=== PATIENT | female | born 1990 | race Two or more races ===

== ENCOUNTER 2020-07-05 10:33 | Emergency (ER) | payer SELFPAY ==
[~2020-07-05] VITALS: Ht 149.9 cm; Wt 75.0 kg
[2020-07-05] MEDS ORDERED: ONDANSETRON PF 4 MG/2 ML VIAL. IVP ONE (11:00)
[2020-07-05] MEDS ORDERED: KETOROLAC 30 MG/ML VIAL. IVP ONE (11:00)
--- NOTE | 2020-07-05 11:15 | PHYS DOC ---
Past Medical History Past Medical History: No Pertinent History Past Surgical History: No Surgical History Smoking Status: Never Smoker Alcohol Use: Occasionally General Adult EDM: Chief Complaint: PAIN ON URINATION HPI: HPI: Patient is a 29 year old female who presents with 5 days of urinary frequency and burning with urination. She stated that she start taking [id number] Cystex. She states that the pain is only gotten worse and she is now having bilateral flank pain for last 2 days but has now become more constant. She states this pain will radiate around into her lower abdomen. She states that she is also started her. But her periods are irregular. She states she is also having some nausea but has not vomited. She states that 2 days ago she was having some chills but she never actually took her temperature. She states she has not been taking any pain medications for pain. She rates it a 7 out of 10 and states it is worse when she is up and moving. She states she is had urine tract infections in the past but no other past medical history. She states she takes no medications daily. Patient denies chest pain, shortness of breath, cough, vomiting, diarrhea, numbness or tingling, headache, dizziness, vision changes. Review of Systems: Review of Systems: Constitutional: fever or chills. [] Eyes: Denies change in visual acuity. [] HENT: Denies nasal congestion or sore throat. [] Respiratory: Denies cough or shortness of breath. [] Cardiovascular: Denies chest pain or edema. [] GI: Low mid abdominal pain, nausea, denies vomiting, bloody stools or diarrhea. [] : Denies dysuria. [] Musculoskeletal: Bilateral flank. Denies back pain or joint pain. [] Integument: Denies rash. [] Neurologic: Denies headache, focal weakness or sensory changes. [] Endocrine: Denies polyuria or polydipsia. [] Lymphatic: Denies swollen glands. [] Psychiatric: Denies depression or anxiety. [] Heart Score: Risk Factors: Risk Factors: DM, Current or recent (<one month) smoker, HTN, HLP, family history of CAD, obesity. Risk Scores: Score 0 - 3: 2.5% MACE over next 6 weeks - Discharge Home Score 4 - 6: 20.3% MACE over next 6 weeks - Admit for Clinical Observation Score 7 - 10: 72.7% MACE over next 6 weeks - Early Invasive Strategies Allergies: Allergies: Allergies Coded Allergies Type Severity Reaction Last Updated Verified No Known Drug Allergies 07/05/20 No Physical Exam: PE: Constitutional: Well developed, well nourished, no acute distress, non-toxic appearance. [] HENT: Normocephalic, atraumatic, bilateral external ears normal, oropharynx moist, no oral exudates, nose normal. [] Eyes: PERRLA, EOMI, conjunctiva normal, no discharge. [] Neck: Normal range of motion, no tenderness, supple, no stridor. [] Cardiovascular:Heart rate regular rhythm, no murmur [] Lungs & Thorax: Bilateral breath sounds clear to auscultation [] Abdomen: Bowel sounds normal, soft, no tenderness, no masses, no pulsatile masses. [] Skin: Warm, dry, no erythema, no rash. [] Back: No tenderness, no CVA tenderness. [] Extremities: No tenderness, no cyanosis, no clubbing, ROM intact, no edema. [] Neurologic: Alert and oriented X 3, normal motor function, normal sensory function, no focal deficits noted. [] Psychologic: Affect normal, judgement normal, mood normal. Normal physical exam [] Current Patient Data: Labs: Laboratory Tests Test 07/05/20 10:56 POC Urine HCG, Qualitative Hcg negative (Negative) Vital Signs: Vital Signs Date Time Temp Pulse Resp B/P (MAP) Pulse Ox O2 Delivery O2 Flow Rate FiO2 07/05/20 10:40 97.7 68 16 92/55 (67) 100 Room Air 97.7 EKG: EKG: [] Radiology/Procedures: Radiology/Procedures: [] Impression: [facility] [address] [place] [address] IMAGING REPORT Signed PATIENT: LITTLE HAQUEACCOUNT: [id number] : 1990 LOCATION: ER AGE: 29 SEX: F EXAM STATUS: REG ER ORD. PHYSICIAN: JOSE FLORENCE APRN REASON: Right flank pain x 2 days, uti symptoms PROCEDURE: CT ABDOMEN PELVIS WO CONTRAST CT abdomen and pelvis without contrast HISTORY: Right flank pain for 2 days and dysuria COMPARISON: None TECHNIQUE: Computed tomographic imaging of the abdomen and pelvis was performed without IV contrast PQRS Compliance Statement: One or more of the following individualized dose reduction techniques were utilized for this examination: 1. Automated exposure control 2. Adjustment of the mA and/or kV according to patient size 3. Use of iterative reconstruction technique FINDINGS: Atelectasis or scarring in the left lower lobe Gallbladder is contracted. Liver negative Spleen negative Adrenal glands negative Pancreas negative Kidneys negative Appendix normal Uterus and ovaries unremarkable Bladder is mostly decompressed Moderate stool retention IMPRESSION: No acute findings Electronically signed by: Ela Gomez MD (07/05/2020 11:57 AM) [id number] DICTATED and SIGNED BY: ELA GOMEZ MD DATE: 07/05/201156 Course & Med Decision Making: Course & Med Decision Making Pertinent Labs and Imaging studies reviewed. (See chart for details) See HPI. Alert and oriented x4. Ambulatory with a steady gait. Skin pink warm and dry. Vital signs within normal limits. Abdomen soft and nontender. No CVA tenderness. She denies any abnormal vaginal discharge or constipation. She states she is able to eat and drink appropriately. Due to patient being on her menses the urinalysis is not accurate. I will treat her symptoms as a UTI. CT shows no acute findings. Blood work is unremarkable. Patient is stable and discharged home and follow-up primary care. [] Niru Disclaimer: Niru Disclaimer: This electronic medical record was generated, in whole or in part, using a voice recognition dictation system. Departure Departure Impression: Primary Impression: Flank pain Additional Impression: Urinary symptom or sign Disposition: 01 HOME, SELF-CARE Condition: STABLE Referrals: NO PCP (PCP) Patient Instructions: Urinary Tract Infection Additional Instructions: Drink plenty of fluids. Take medication as prescribed and with food. Follow-up with a primary care physician. The Pyridium will make your urine turn orange color. Scripts Cephalexin (KEFLEX) 500 Mg Capsule 1 CAP PO BID for 7 Days, #14 CAP 0 Refills Prov: JOSE FLORENCE RESEARCH EDITOR 07/05/20 Phenazopyridine Hcl (PYRIDIUM) 100 Mg Tablet 1 TAB PO TID for urinary discomfort for 3 Days, #9 TAB 0 Refills Prov: JOSE FLORENCE RESEARCH EDITOR 07/05/20 Justicifation of Admission Dx: Justifications for Admission: Justification of Admission Dx: N/A JOSE FLORENCE APRN Jul 05, 2020 11:15
[2020-07-05 11:26] LABS: COLOR,URINE RED
[2020-07-05 11:33] LABS: BASO # 0.1 x10^3/uL (0.0-0.2); BASO % 1 % (0-3); EOS # 0.2 x10^3/uL (0.0-0.7); EOS % 3 % (0-3); HEMATOCRIT 39.1 % (36.0-47.0); HEMOGLOBIN 13.4 g/dL (12.0-15.5); LYMPH # 1.9 x10^3/uL (1.0-4.8); LYMPH % 25 % (24-48); MEAN CORPUSCULAR HEMOGLOBIN 30 pg (25-35); MEAN CORPUSCULAR HGB CONC 34 g/dL (31-37); MEAN CORPUSCULAR VOLUME 88 fL (79-100); MONO # 0.5 x10^3/uL (0.0-1.1); MONO % 7 % (0-9); NEUT # 4.8 x10^3/uL (1.8-7.7); NEUT % 65 % (31-73); PLATELET COUNT 388 x10^3/uL (140-400); RED BLOOD COUNT 4.44 x10^6/uL (3.50-5.40); RED CELL DISTRIBUTION WIDTH 13.6 % (11.5-14.5); WHITE BLOOD COUNT 7.4 x10^3/uL (4.0-11.0)
[2020-07-05 11:33] LABS: CLARITY,URINE TURBID
[2020-07-05 11:35] LABS: RBC,URINE TNTC /HPF (0-2)
[2020-07-05 11:37] LABS: CALCIUM 8.5 mg/dL (8.5-10.1); CREATININE 0.8 mg/dL (0.6-1.0); GFR 84.2; POTASSIUM 3.7 mmol/L (3.5-5.1)
[2020-07-05 11:43] LABS: ALBUMIN 3.3 g/dL (3.4-5.0); ALBUMIN/GLOBULIN RATIO 0.9 (1.0-1.7); TOTAL BILIRUBIN 0.2 mg/dL (0.2-1.0)
[2020-07-05 11:44] LABS: BACTERIA,URINE MANY /HPF (0-FEW); SQUAMOUS EPITHELIAL CELL,UR FEW /LPF; WBC,URINE FIELD OBSCURED /HPF (0-4)
[2020-07-05 11:47] LABS: PROTHROMBIN TIME PATIENT 12.5 SEC (11.7-14.0)
--- NOTE | 2020-07-05 12:00 | RAD ---
CT abdomen and pelvis without contrast HISTORY: Right flank pain for 2 days and dysuria COMPARISON: None TECHNIQUE: Computed tomographic imaging of the abdomen and pelvis was performed without IV contrast PQRS Compliance Statement: One or more of the following individualized dose reduction techniques were utilized for this examination: 1. Automated exposure control 2. Adjustment of the mA and/or kV according to patient size 3. Use of iterative reconstruction technique FINDINGS: Atelectasis or scarring in the left lower lobe Gallbladder is contracted. Liver negative Spleen negative Adrenal glands negative Pancreas negative Kidneys negative Appendix normal Uterus and ovaries unremarkable Bladder is mostly decompressed Moderate stool retention IMPRESSION: No acute findings Electronically signed by: Kwame Gomez MD (07/05/2020 11:57 AM) [id number]
[2020-07-05] MEDS ORDERED: CEPH-264 PO (12:14)
[2020-07-05] MEDS ORDERED: PHEN100T82 PO (12:14)
[2020-07-05 12:28] VITALS: BP 114/70
== END 2020-07-05 12:58 | disposition home or self-care (01) ==
LOC: ER 10:33
DX: R10.30 Lower abdominal pain, unspecified (principal); R35.0 Frequency of micturition; R30.0 Dysuria; R11.0 Nausea
CPT/HCPCS: 36415; 74176; 80053; 81001; 81025; 83690; 85025; 85610; 87086; 96374; 96375; 99284; J1885; J2405